=== PATIENT | female | born 1975 | race Asian ===

== ENCOUNTER 2019-03-20 21:58 | Emergency (ER) | payer OTHER ==
[~2019-03-20] VITALS: Ht 160 cm; Wt 61.2 kg
[2019-03-20 22:18] VITALS: Ht 160 cm; Wt 61.2 kg
[2019-03-21] VITALS: BP 109/64
== END 2019-03-21 01:00 | disposition home or self-care (01) ==
LOC: ED 21:58
DX: N39.0 Urinary tract infection, site not specified (principal)